=== PATIENT | female | born 1985 | race Caucasian/White ===

== ENCOUNTER 2017-03-26 17:11 | Emergency (ER) | payer OTHER ==
[~2017-03-26] VITALS: Wt 86.2 kg
[~2017-03-26 17:11] MED LIST: BACTRIM DS 8001 TA1 PO; CIPRO250 MG PO; KEFLEX500 MG PO; NORCO 5-325 TA1 EACH PO; PRENATAL1 TA7 PO; TRAMADOL HCL50 MG PO; ZOFRAN ODT4 MG SL
[2017-03-26 18:14] LABS: BILIRUBIN NEGATIVE (NEGATIVE); BLOOD 1+ (NEGATIVE); CLARITY SL CLOUDY (CLEAR); COLOR YELLOW (YELLOW); GLUCOSE NEGATIVE (NEGATIVE); KETONE 1+ (NEGATIVE); LEUKO ESTERASE 2+ (NEGATIVE); NITRITE NEGATIVE (NEGATIVE); PH 6.5 (5.0-9.0); PROTEIN TRACE (NEGATIVE); UROBILINOGEN 0.2 E.U./dl (0.2-1.0)
[2017-03-26 18:15] LABS: BASO # 0.1 10*3/uL (0.0-0.1); BASO % 0.4 % (0.0-1.0); EOS # 0.1 10*3/uL (0.0-0.4); EOS % 0.6 % (1.0-4.0); HEMATOCRIT 40.4 % (37.0-47.0); HEMOGLOBIN 13.4 g/dl (12.0-16.0); IG # 0.1 10*3/uL (0.0-0.1); LYMPH # 1.4 10*3/uL (1.3-4.4); MEAN CELL VOLUME 94.6 fl (81.0-99.0); MEAN CORPUSCULAR HGB 31.4 pg (27.0-31.0); MEAN CORPUSCULAR HGB CONC 33.2 g/dl (33.0-37.0); MEAN PLATELET VOLUME 10.6 fl (9.6-12.3); MONO # 0.7 10*3/uL (0.1-1.0); MONO % 5.1 % (3.0-9.0); NEUT # 11.7 10*3/uL (2.3-7.9); NEUT % 83.5 % (47.0-73.0); PLATELET COUNT AUTOMATED 191 10*3/uL (130-400); RED BLOOD COUNT 4.27 10*6/uL (4.10-5.10); RED CELL DISTRI WIDTH 13.2 % (0-14.5); WHITE BLOOD COUNT 14.1 10*3/uL (4.8-10.8)
[2017-03-26 18:20] LABS: BACTERIA 4+; EPITHELIAL CELLS 40-45; RBC 21-30 rbc/hpf (0-2); URINE REFLEX COMMENT YES (NO); WBC TNTC wbc/hpf (0-5)
[2017-03-26 18:32] LABS: ALBUMIN 3.6 gm/dl (3.1-4.5); BILIRUBIN, TOTAL 0.5 mg/dl (0.2-1.0); POTASSIUM 3.8 mmol/L (3.5-5.1); TOTAL PROTEIN 7.2 gm/dL (6.4-8.2)
== END 2017-03-26 22:39 | disposition short-term general hospital (02) ==
LOC: ED 17:11
PROVIDERS: Registered Nurse
DX: A41.9 Sepsis, unspecified organism (principal); N12 Tubulo-interstitial nephritis, not specified as acute or chronic; N13.9 Obstructive and reflux uropathy, unspecified; N20.0 Calculus of kidney; Z87.442 Personal history of urinary calculi; F17.200 Nicotine dependence, unspecified, uncomplicated; Z88.1 Allergy status to other antibiotic agents; Z98.890 Other specified postprocedural states

== ENCOUNTER → 2017-04-12 | Outpatient (CLI) | payer OTHER ==
[2017-04-12 14:52] LABS: BILIRUBIN NEGATIVE (NEGATIVE); BLOOD NEGATIVE (NEGATIVE); CLARITY SL CLOUDY (CLEAR); COLOR YELLOW (YELLOW); GLUCOSE NEGATIVE (NEGATIVE); KETONE NEGATIVE (NEGATIVE); LEUKO ESTERASE 1+ (NEGATIVE); NITRITE NEGATIVE (NEGATIVE); PH 6.5 (5.0-9.0); PROTEIN NEGATIVE (NEGATIVE); UROBILINOGEN 0.2 E.U./dl (0.2-1.0)
[2017-04-12 15:07] LABS: BACTERIA 2+; BASO # 0.1 10*3/uL (0.0-0.1); BASO % 1.1 % (0.0-1.0); EOS # 0.3 10*3/uL (0.0-0.4); EOS % 3.9 % (1.0-4.0); EPITHELIAL CELLS 21-30; HEMATOCRIT 38.3 % (37.0-47.0); HEMOGLOBIN 12.5 g/dl (12.0-16.0); LYMPH # 2.9 10*3/uL (1.3-4.4); LYMPH % 32.8 % (27.0-41.0); MEAN CELL VOLUME 94.3 fl (81.0-99.0); MEAN CORPUSCULAR HGB 30.8 pg (27.0-31.0); MEAN CORPUSCULAR HGB CONC 32.6 g/dl (33.0-37.0); MONO # 0.5 10*3/uL (0.1-1.0); MONO % 5.8 % (3.0-9.0); NEUT # 4.9 10*3/uL (2.3-7.9); NEUT % 55.9 % (47.0-73.0); PLATELET COUNT AUTOMATED 266 10*3/uL (130-400); RED BLOOD COUNT 4.06 10*6/uL (4.10-5.10); RED CELL DISTRI WIDTH 13.2 % (0-14.5); WBC TNTC wbc/hpf (0-5); WHITE BLOOD COUNT 8.8 10*3/uL (4.8-10.8)
[2017-04-12 15:21] LABS: CHLORIDE 106 mmol/L (98-107); POTASSIUM 3.6 mmol/L (3.5-5.1); SODIUM 140 mmol/L (136-145)
[2017-04-12 15:29] LABS: ALBUMIN 3.6 gm/dl (3.1-4.5); ALKALINE PHOSPHATASE 79 U/L (45-117); BILIRUBIN, TOTAL 0.3 mg/dl (0.2-1.0); BUN 13 mg/dl (7-24); CARBON DIOXIDE 25 mmol/L (21-32); EST GLOM FILT AFRICAN AMERICAN > 60 ml/min; FREE THYROXIN INDEX/T7 2.3 (1.5-5.4); GLUCOSE 85 mg/dL (65-99); SGOT/AST 18 IU/L (3-35); SGPT/ALT 24 U/L (12-78); T3 UPTAKE 31 % (31-39); THYROXINE (T4) TOTAL 7.7 ug/dl (4.8-13.9); TOTAL PROTEIN 7.4 gm/dL (6.4-8.2)
== END | disposition home or self-care (01) ==
LOC: LAB 14:23
PROVIDERS: Urology
DX: N20.0 Calculus of kidney (principal); E03.9 Hypothyroidism, unspecified

== ENCOUNTER → 2017-04-16 | Outpatient (CLI) | payer OTHER | END | disposition home or self-care (01) | LOC: US 14:47 | DX: N20.0 Calculus of kidney (principal) ==

== ENCOUNTER 2017-07-15 16:31 | Emergency (ER) | payer BC ==
[~2017-07-15] VITALS: Ht 172.7 cm; Wt 81.6 kg
== END 2017-07-15 19:02 | disposition home or self-care (01) ==
LOC: ED 16:31
DX: S90.31XA Contusion of right foot, initial encounter (principal); M25.511 Pain in right shoulder; F17.200 Nicotine dependence, unspecified, uncomplicated; Z88.1 Allergy status to other antibiotic agents; Z88.8 Allergy status to other drugs, medicaments and biological substances; W22.8XXA Striking against or struck by other objects, initial encounter; Y93.89 Activity, other specified; Y92.89 Other specified places as the place of occurrence of the external cause; Y99.9 Unspecified external cause status

== ENCOUNTER → 2021-02-14 | Outpatient (CLI) | payer OTHER | END | disposition home or self-care (01) | LOC: CARD 02-07 14:00 | PROVIDERS: ATTEND Family Medicine | DX: I11.9 Hypertensive heart disease without heart failure (principal); Z79.899 Other long term (current) drug therapy ==

== ENCOUNTER → 2022-04-28 | Outpatient (CLI) | payer OTHER | END | disposition home or self-care (01) | LOC: US 04-20 08:30 | PROVIDERS: ATTEND Student in an Organized Health Care Education/Training Program | DX: K82.8 Other specified diseases of gallbladder (principal); R74.8 Abnormal levels of other serum enzymes ==

== ENCOUNTER 2023-08-28 22:37 | Emergency (ER) | payer OTHER ==
[~2023-08-28] VITALS: Ht 162.5 cm; Wt 63.5 kg
== END 2023-08-29 01:03 | disposition home or self-care (01) ==
LOC: ED 22:37
DX: M65.4 Radial styloid tenosynovitis [de Quervain] (principal); Z88.1 Allergy status to other antibiotic agents

== ENCOUNTER → 2025-06-29 | Outpatient (CLI) | payer OTHER | END | disposition home or self-care (01) | LOC: US 14:28 | PROVIDERS: ATTEND Family Medicine | DX: E04.2 Nontoxic multinodular goiter (principal) ==

== ENCOUNTER → 2025-07-29 | Outpatient (CLI) | payer OTHER | END | disposition home or self-care (01) | LOC: NM 07-28 07:00 | PROVIDERS: ATTEND Family Medicine | DX: E04.2 Nontoxic multinodular goiter (principal) ==